=== PATIENT | female | born 1995 | race Caucasian/White ===

== ENCOUNTER → 2023-03-26 09:39 | Outpatient (CLI) | payer BC, OTHER, MEDICAID, SELFPAY | PROVIDERS: Visit Provider Student in an Organized Health Care Education/Training Program | DX: R30.0 Dysuria (principal) | CPT/HCPCS: 87077; 87086; 87186 ==

== ENCOUNTER 2024-07-26 15:14 | Emergency (ER) | payer BC, OTHER, SELFPAY ==
[2024-07-26 15:13] VITALS: BP 136/87; PULSE 82; RESP 18; TEMP 37.3; O2SAT 98; BMI 38.2
--- NOTE | 2024-07-26 16:36 | ED.HEATRA ---
HPI - Head Injury <Lidia Levine PA-C - Last Filed: 07/26/24 17:39> General Chief complaint: Head Injury Stated complaint: vertigo/fall/ hit head Time Seen by Provider: 07/26/24 16:16 Source: patient and EMS Mode of arrival: EMS History of Present Illness HPI Narrative: 29-year-old female with past medical history Meniere's disease presents to the ED status post a closed head injury sustained just prior to arrival. Patient states that she has had many drop attacks due to the Meniere's, had a severe attack of sudden vertigo today, following which she fell, striking the front of her head and right elbow. Patient denies loss of consciousness. Patient endorses pain, swelling to her right forehead as well as pain in the right elbow. Patient states that she is feeling a low-grade level of vertigo currently, which she describes as feeling like the rocking when on a boat. Patient states that she usually takes a small dose of clonazepam when she has these low-level instances vertigo. Patient followed by an ENT in [place]. Patient expresses possibly getting a 2nd opinion from another ENT. Related Data Home Medications Medication Instructions Recorded Confirmed control PO 03/26/23 03/26/23 methotrexate PO 03/26/23 03/26/23 pregabalin [Lyrica] PO 03/26/23 03/26/23 Previous Rx's Medication Instructions Recorded phenazopyridine 100 mg tablet 100 mg PO TID PRN pain 6 doses #6 03/26/23 (Pyridium) tabs Allergies Allergy/AdvReac Type Severity Reaction Status Date / Time baclofen Allergy Intermediate Hallucinati Verified 03/26/23 09:48 ng prednisone Allergy Intermediate Pain Verified 03/26/23 09:48 clindamycin Allergy Mild Rash Verified 03/26/23 09:48 Latex, Natural Rubber Allergy Mild Rash Verified 03/26/23 09:48 Review of Systems <Lidia Levine PA-C - Last Filed: 07/26/24 17:39> Constitutional Constitutional: Denies chills, Denies fatigue, Denies fever(s), Denies frequent falls, Reports headache(s), Denies lethargy and Denies weakness Eyes Eyes: Denies change in vision, Denies eye discharge, Denies irritation and Denies loss of vision ENT Ears, Nose, Mouth, and Throat: Denies change in voice, Denies dizziness, Reports headache(s), Denies neck pain, Denies sore throat and Denies throat swelling Cardiovascular Cardiovascular: Denies chest pain, Denies irregular heart rhythm, Denies lightheadedness, Denies palpitations, Denies dyspnea, Denies dyspnea on exertion and Denies orthopnea Respiratory Respiratory: Denies cough, Denies dyspnea, Denies dyspnea on exertion and Denies wheezing Gastrointestinal Gastrointestinal: Denies abdominal pain, Denies change in bowel habits, Denies diarrhea, Denies nausea and Denies vomiting Musculoskeletal Musculoskeletal: Denies neck pain and Denies numbness Comments: Right elbow pain Integumentary/Breasts Skin/Breast: Denies pruritus, Denies erythema, Denies rash and Denies wounds Neurologic Neurologic: Denies behavioral changes, Denies confusion, Denies dizziness, Denies frequent falls, Reports headache(s), Denies loss of vision, Denies numbness and Denies weakness Psychiatric Psychiatric: Denies anxiety, Denies behavioral changes, Denies confusion, Denies depression, Denies homicidal ideation and Denies suicidal ideation Endocrine Endocrine: Denies fatigue, Denies flushing and Denies palpitations Hematologic/Lymphatic Hematologic/Lymphatic: Denies easy bruising Allergic/Immunologic Allergic/Immunologic: Denies urticaria, Denies throat swelling and Denies wheezing Patient History <Lidia Levine PA-C - Last Filed: 07/26/24 17:39> Social History Smoking Status: Never smoker Smoking Status: Never smoker Exam <Lidia Levine PA-C - Last Filed: 07/26/24 17:39> Narrative Exam Narrative: Const General:?cooperative, healthy appearing and comfortable [facility] Head:? Tenderness to palpation and swelling noted to right forehead above the brow. Ears:?hearing grossly normal bilaterally Nose:?external nose normal Face and sinus:?normal facial exam and sinuses nontender Mouth:?oral mucosae normal Throat:?posterior oropharynx normal Eyes General:?appearance normal, both eyes and all related structures Neck Neck:?normal visual inspection and no lymphadenopathy noted Resp Effort & Inspection:?normal respiratory effort Auscultation:?clear to auscultation bilaterally Cardio Rate:?regular rate Rhythm:?regular rhythm Musculoskeletal Tenderness to palpation of the right elbow. Full range of motion. Strength and sensation intact. Neurovascularly intact. Neuro General:?patient alert, patient awake and patient oriented x3 Initial Vital Signs Initial Vital Signs: Vital Signs Temperature 99.2 F 07/26/24 15:13 Pulse Rate 82 07/26/24 15:13 Respiratory Rate 18 07/26/24 15:13 Blood Pressure 136/87 07/26/24 15:13 Pulse Oximetry 98 07/26/24 15:13 Oxygen Delivery Method Room Air 07/26/24 15:13 <Roxanne Carmichael DO - Last Filed: 07/29/24 18:40> Initial Vital Signs Initial Vital Signs: Vital Signs Temperature 99.2 F 07/26/24 15:13 Pulse Rate 82 07/26/24 15:13 Respiratory Rate 18 07/26/24 15:13 Blood Pressure 136/87 07/26/24 15:13 Pulse Oximetry 98 07/26/24 15:13 Oxygen Delivery Method Room Air 07/26/24 15:13 Course <Lidia Levine PA-C - Last Filed: 07/26/24 17:39> Orders Ordered: Discontinued Medications Clonazepam (Clonazepam 0.5 Mg Tablet) 0.5 mg PO NOW ONE Stop: 07/26/24 16:51 Last Admin: 07/26/24 17:14 Dose: 0.5 mg Documented By: SCHUYLER Ibuprofen (Ibuprofen 400 Mg Tablet) 800 mg PO NOW ONE Stop: 07/26/24 17:31 Last Admin: 07/26/24 17:36 Dose: 800 mg Documented By: SCHUYLER Vital Signs Vital signs: Vital Signs - 8 hr 07/26/24 15:13 Temperature 99.2 F Pulse Rate 82 Respiratory Rate 18 Blood Pressure 136/87 Pulse Oximetry 98 Oxygen Delivery Method Room Air <Roxanne Carmichael DO - Last Filed: 07/29/24 18:40> Orders Ordered: Discontinued Medications Clonazepam (Clonazepam 0.5 Mg Tablet) 0.5 mg PO NOW ONE Stop: 07/26/24 16:51 Last Admin: 07/26/24 17:14 Dose: 0.5 mg Documented By: SCHUYLER Ibuprofen (Ibuprofen 400 Mg Tablet) 800 mg PO NOW ONE Stop: 07/26/24 17:31 Last Admin: 07/26/24 17:36 Dose: 800 mg Documented By: SCHUYLER Vital Signs Vital signs: Vital Signs - 8 hr 07/26/24 15:13 Temperature 99.2 F Pulse Rate 82 Respiratory Rate 18 Blood Pressure 136/87 Pulse Oximetry 98 Oxygen Delivery Method Room Air MDM - Head Injury <Lidia Levine PA-C - Last Filed: 07/26/24 17:39> MDM Narrative Medical decision making narrative: 29-year-old female with past medical history Meniere's disease presents to the ED status post a closed head injury sustained just prior to arrival. Obtained CT head, x-ray of the elbow, both of which were without acute findings. Patient's headache was treated with ibuprofen. Patient given clonazepam for vertigo. Recommend follow-up with ENT. ED return precautions discussed with patient. Patient verbalized understanding. Medical records reviewed: Yes Discharge Plan Departure Patient Disposition: Home Clinical Impression: Closed head injury Qualifiers: Encounter type: initial encounter Qualified Code(s): S09.90XA - Unspecified injury of head, initial encounter Instructions: DI for Closed Head Injury Activity Restrictions/Additional Instructions: You were evaluated in the ED today for a head and elbow injury. The CT scan of the head and elbow x-ray were normal. You may continue to ice your head, take Tylenol or ibuprofen for discomfort. Please follow-up with your PCP and ENT as soon as possible for further evaluation. Return to the ED if you have worsening symptoms. Prescriptions: No Action pregabalin [Lyrica] PO methotrexate PO control PO phenazopyridine [Pyridium] 100 mg tablet 100 mg PO TID PRN (Reason: pain) Qty: 6 0RF Referrals: Miscellaneous,Doctor, MD [Primary Care Provider] - Stand Alone Forms: Patient Portal/API/Survey ED Sign-out <Roxanne Carmichael DO - Last Filed: 07/29/24 18:40> Cosign ED Attending [place] Attestation: I was available for consultation.
--- NOTE | 2024-07-26 16:50 | DI.RAD.S_ITS ---
PROCEDURE: XR ELBOW RT MIN 3V INDICATIONS: fall TECHNIQUE: 3 views of the elbow were acquired. COMPARISON: None. FINDINGS: Bones: No fractures or dislocations. No suspicious bony lesions. Soft tissues: No elbow joint effusion. No suspicious soft tissue calcifications. IMPRESSION: No acute bony abnormality or significant joint effusion. Dictated by: Ruchi Berger M.D. on 07/26/2024 at 17:19 Approved by: Ruchi Berger M.D. on 07/26/2024 at 17:20
--- NOTE | 2024-07-26 16:50 | DI.CT.S_ITS ---
PROCEDURE: CT HEAD/BRAIN WO CON INDICATIONS: fall TECHNIQUE: Noncontrast 4.5 mm thick angled axial sections acquired from the foramen magnum to the vertex, with coronal and sagittal reformats. For radiation dose reduction, the following was used: automated exposure control, adjustment of mA and/or kV according to patient size. COMPARISON: None. FINDINGS: Image quality: Diagnostic. CSF spaces: Basal cisterns are patent. No extra-axial fluid collections. Ventricles are normal in size and shape. Brain: No midline shift. No intracranial masses or hemorrhage. Short-white matter interface is normal. Skull and face: Minor right supraorbital frontal soft tissue swelling. No underlying fracture Calvarium and visualized facial bones are otherwise intact, without suspicious lesions. Sinuses: Visualized sinuses and mastoids are clear. IMPRESSION: Minor right frontal soft tissue swelling without underlying fracture. No CT evidence of acute intracranial trauma. Dictated by: Ruchi Berger M.D. on 07/26/2024 at 17:16 Approved by: Ruchi Berger M.D. on 07/26/2024 at 17:19
[2024-07-26] MEDS: clonazePAM 0.5 MG TABLET PO (17:14)
[2024-07-26] MEDS: IBUPROFEN 400 MG TABLET 800 MG PO (17:36)
[2024-07-26 17:39] VITALS: BP 133/80; PULSE 82; RESP 20; TEMP 36.6; O2SAT 97
== END 2024-07-26 17:39 | disposition home or self-care (01) ==
PROVIDERS: Emergency Provider Student in an Organized Health Care Education/Training Program
DX: S09.90XA Unspecified injury of head, initial encounter (principal); S59.901A Unspecified injury of right elbow, initial encounter; W18.00XA Striking against unspecified object with subsequent fall, initial encounter; H81.09 Meniere's disease, unspecified ear
CPT/HCPCS: 70450; 73080; 99283; 99284

== ENCOUNTER → 2024-09-24 07:50 | Outpatient (CLI) | payer BC, OTHER, SELFPAY | PROVIDERS: Visit Provider Nurse Practitioner Family | DX: R30.0 Dysuria (principal) | CPT/HCPCS: 87086 ==